=== PATIENT | female | born 1985 | race Caucasian/White ===

== ENCOUNTER 2019-03-11 17:44 | Emergency (ER) | payer SELFPAY ==
[~2019-03-11] VITALS: Ht 160 cm; Wt 100.2 kg
[2019-03-11 17:52] VITALS: BP 142/68
--- NOTE | 2019-03-11 17:56 | NUR ---
PT TO BED 11 WITH STEADY GAIT
--- NOTE | 2019-03-11 17:59 | NUR ---
34 Y/O F C/C H/A SINCE MONDAY. PER PT H/A EXACERBATES EVERY TIME SHE HAS BM. PER PT TAKEN IBUPROFEN WITH NO RELIEF; LAST TAKEN YESTERDAY. PT ALLERGIES PNC, CIPRO, BENADRYL. NO HX. NO RX. NO N/D/V. SIDE RAIL X1. PUPILS PERRLA. FAMILY AT BEDSIDE.
--- NOTE | 2019-03-11 19:02 | NUR ---
Patient discharged with v/s stable. Written and verbal after care instructions given and explained. Patient alert, oriented and verbalized understanding of instructions. Ambulatory with steady gait. All questions addressed prior to discharge. ID band removed. Patient advised to follow up with PMD. Rx of IBUPROFEN AND SUMATRIPTAN given. Patient educated on indication of medication including possible reaction and side effects. Opportunity to ask questions provided and answered.
[2019-03-11 19:03] VITALS: BP 142/68
== END 2019-03-11 19:02 | disposition home or self-care (01) ==
LOC: MED 17:44
DX: R51 Headache (principal); Z88.0 Allergy status to penicillin; Z88.1 Allergy status to other antibiotic agents; Z88.8 Allergy status to other drugs, medicaments and biological substances
CPT/HCPCS: 99283

== ENCOUNTER 2019-09-08 16:20 | Emergency (ER) | payer BC, SELFPAY ==
[~2019-09-08] VITALS: Ht 157.5 cm; Wt 104.3 kg
--- NOTE | 2019-09-08 16:40 | NUR ---
PT AMBULATED TO ER BED 04
[2019-09-08 17:03] VITALS: BP 135/74
--- NOTE | 2019-09-08 17:20 | NUR ---
C/O BILAT FLANK & LOWER BACK PAIN 10/20 RADIATING TO PUBIC REGION. PT STATES SHE WAS SEEN AT URGENT CARE 3 DAYS AGO AND WAS TOLD THAT SHE HAD BLOOD IN URINE AND SENT HOME WITH RX OF MOTRIN. REPORTS PAIN HAS INCREASED AND IS NOT RELIEF WITH MOTRIN. DENIES DYSURIA, FREQUENCY, RETENTION ETC. DENIES NAUSEA/VOMITING/FEVER. BED IN LOW POSITION, SIDE RAIL UP X1
--- NOTE | 2019-09-08 17:25 | NUR ---
ERMD AT BEDSIDE EVALUATING PT
[2019-09-08] MEDS ORDERED: NACL 0.9% 1,000 ML IV SCH (17:29)
[2019-09-08] MEDS ORDERED: KETOROLAC 30 MG/ML VIAL IVP ONE (17:30)
--- NOTE | 2019-09-08 17:46 | NUR ---
PT TAKEN TO CT
[2019-09-08 17:57] LABS: BILIRUBIN,URINE NEGATIVE (NEGATIVE); BLOOD, URINE 3+ (NEGATIVE); COLOR,URINE YELLOW (YELLOW); LEUKOCYTE ESTERASE ,URINE TRACE (NEGATIVE); NITRITE, URINE NEGATIVE (NEGATIVE); PH,URINE 5.5 (5.0-9.0); UGLUCOSE NEGATIVE (NEGATIVE)
[2019-09-08 18:27] LABS: RBC,URINE 20-50 /HPF (0-5)
[2019-09-08 18:29] LABS: APPEARANCE,URINE SLIGHTLY HAZY (CLEAR)
[2019-09-08 18:34] LABS: BASOPHILS % (AUTO) 0.5 % (0.0-2.0); EOSINOPHILS # (AUTO) 0.1 K/uL (0-0.4); EOSINOPHILS % (AUTO) 1.8 % (0.0-4.0); HEMATOCRIT 37.1 % (36-48); HEMOGLOBIN 12.2 g/dL (12.0-16.0); LYMPHOCYTES # (AUTO) 1.3 K/uL (2.5-16.5); LYMPHOCYTES % (AUTO) 17.4 % (20.5-51.1); MEAN CORPUSCULAR HEMOGLOBIN 30 pg (27-31); MEAN CORPUSCULAR HGB CONC 33 g/dL (33-37); MEAN CORPUSCULAR VOLUME 90.8 fL (80-94); MONOCYTES # (AUTO) 0.7 K/uL (0.8-1.0); MONOCYTES % (AUTO) 9.4 % (1.7-9.3); NEUTROPHILS # (AUTO) 5.3 K/uL (1.8-7.7); NEUTROPHILS % (AUTO) 70.9 % (42.2-75.2); PLATELET COUNT (AUTO) 236 K/uL (140-450); RED BLOOD CELL COUNT(AUTO) 4.08 MIL/uL (4.20-5.40); RED CELL DISTRIBUTION WIDTH 13.6 % (11.6-13.7); WHITE BLOOD COUNT (AUTO) 7.5 K/uL (4.8-10.8)
[2019-09-08 18:35] LABS: ALBUMIN 3.4 g/dL (3.4-5.0); ANION GAP 12.3 (8-16); CARBON DIOXIDE 27.3 mmol/L (21-32); CREATININE 0.8 mg/dL (0.6-1.3); POTASSIUM 3.6 mmol/L (3.5-5.1); TOTAL BILIRUBIN 0.2 mg/dL (0.0-1.0)
--- NOTE | 2019-09-08 19:07 | NUR ---
COVID SWAB COLLECTED AND WALKED TO LAB
[2019-09-08 19:33] VITALS: BP 132/76
--- NOTE | 2019-09-08 19:34 | NUR ---
Patient discharged with v/s stable. Written and verbal after care instructions given and explained. Patient alert, oriented and verbalized understanding of instructions. Ambulatory with steady gait. All questions addressed prior to discharge. ID band removed. Patient advised to follow up with PMD. Rx of NORCO, AZITHROMYCIN, BACTRIM AND IBUPROEN given. Patient educated on indication of medication including possible reaction and side effects. Opportunity to ask questions provided and answered.
== END 2019-09-08 19:34 | disposition home or self-care (01) ==
LOC: EEVIPCON 16:20 → MED 16:20
DX: U07.1 COVID-19 (principal); N39.0 Urinary tract infection, site not specified; Z88.0 Allergy status to penicillin; Z88.1 Allergy status to other antibiotic agents; Z88.5 Allergy status to narcotic agent
CPT/HCPCS: 36415; 74176; 80053; 81001; 81025; 83690; 85025; 87086; 96374; 99284; J1885; U0003; J7030

== ENCOUNTER 2019-09-13 07:00 | Inpatient (IN) | payer MEDICAID, SELFPAY ==
[~2019-09-13] VITALS: Ht 157.5 cm; Wt 104.3 kg
[2019-09-13 07:00] VITALS: BP 110/70
--- NOTE | 2019-09-13 07:00 | NUR ---
PT AMBULATED TO ER BED 01
--- NOTE | 2019-09-13 07:10 | NUR ---
C/O SOB X 2 HRS . PT STATES SHE WOKE UP GASPING FOR AIR AND FEELS LIKE SHE CAN'T CATCH HER BREATH. PT COVID + , 09/08/19. +DIARRHEA / COUGH / DIZZINESS , - N/V. PT TOOK TYLENOL AT 5 W/ NO RELIEF. PT DENIES ANY FEVER, CP, OR COUGH AT THIS TIME; PATIENT STATES PAIN OF 0/10 AT THIS TIME; VSS; PATIENT POSITIONED FOR COMFORT; HOB ELEVATED; BEDRAILS UP X1; BED DOWN. ER MD MADE AWARE OF PT STATUS. PT IS IN THE ISO ROOM AND ON MONITOR.
[2019-09-13] MEDS ORDERED: ALBUTEROL HFA MDI 90 MCG/ACTUATION 8 GM INH ONE (07:30)
[2019-09-13] MEDS ORDERED: guaiFENesin DM 200/20 MG-10 ML 10 ML UDC PO ONE (07:30)
[2019-09-13] MEDS ORDERED: DEXAMETHASONE 10 MG/ML VIAL IM ONE (07:30)
--- NOTE | 2019-09-13 07:45 | NUR ---
RT IS AT BEDSIDE.
--- NOTE | 2019-09-13 08:50 | NUR ---
PT IS RESTING IN THE ISO ROOM WITH VSS.
[2019-09-13 09:36] LABS: BASOPHILS # (AUTO) 0.1 K/uL (0.00-0.22); BASOPHILS % (AUTO) 0.7 % (0.0-2.0); HEMATOCRIT 37.8 % (36-48); HEMOGLOBIN 12.4 g/dL (12.0-16.0); LYMPHOCYTES # (AUTO) 1.2 K/uL (2.5-16.5); LYMPHOCYTES % (AUTO) 17.5 % (20.5-51.1); MEAN CORPUSCULAR HEMOGLOBIN 30 pg (27-31); MEAN CORPUSCULAR HGB CONC 33 g/dL (33-37); MEAN CORPUSCULAR VOLUME 90.3 fL (80-94); MONOCYTES # (AUTO) 0.4 K/uL (0.8-1.0); NEUTROPHILS # (AUTO) 5.4 K/uL (1.8-7.7); NEUTROPHILS % (AUTO) 75.8 % (42.2-75.2); PLATELET COUNT (AUTO) 209 K/uL (140-450); RED BLOOD CELL COUNT(AUTO) 4.18 MIL/uL (4.20-5.40); RED CELL DISTRIBUTION WIDTH 13.7 % (11.6-13.7); WHITE BLOOD COUNT (AUTO) 7.1 K/uL (4.8-10.8)
--- NOTE | 2019-09-13 09:36 | NUR ---
PT IS NOT ABLE TO URINATE AT THIS TIME.
[2019-09-13] MEDS ORDERED: AZITHROMYCIN 500 MG in DEXTROSE 5% 250 ML IV ONE (09:40)
[2019-09-13 09:45] LABS: C-REACTIVE PROTEIN QUANT 10.3 mg/dL (0.0-0.9)
[2019-09-13 09:49] LABS: ALBUMIN 3.3 g/dL (3.4-5.0); ANION GAP 15.3 (8-16); CARBON DIOXIDE 24.4 mmol/L (21-32); CREATININE 0.9 mg/dL (0.6-1.3); POTASSIUM 3.7 mmol/L (3.5-5.1); TOTAL BILIRUBIN 0.3 mg/dL (0.0-1.0)
[2019-09-13 09:50] LABS: LACTATE DEHYDROGENASE 219 U/L (81-234); PROTHROMBIN TIME 10.3 secs (10.8-13.4)
[2019-09-13] MEDS ORDERED: cefTRIAXone 1,000 MG VIAL ONE (10:03)
[2019-09-13] MEDS ORDERED: AZITHROMYCIN 500 MG INJ VIAL IV ONE (10:03)
[2019-09-13] MEDS ORDERED: MORPHINE SULFATE 2 MG/ML SYR IVP PRN (10:30)
[2019-09-13] MEDS ORDERED: ONDANSETRON 4 MG/2 ML VIAL IM/IVP PRN (10:30)
[2019-09-13] MEDS ORDERED: ZOLPIDEM 5 MG TAB PO PRN (10:30)
[2019-09-13] MEDS ORDERED: DOCUSATE SODIUM 100 MG GELCAP PO PRN (10:30)
--- NOTE | 2019-09-13 11:00 | NUR ---
URINE SAMPLE OBTAINED AND SENT TO LAB.
--- NOTE | 2019-09-13 11:25 | NUR ---
Pt admitted into room 112B from ED via gurney. Pt able to amb from gurney to bed with steady gait. Pt aaox4, respirations even & nonlabored in O2 @ 2Lpm via n/c. Left AC IV 20G intact with ongoing Zithromax. Pt oriented to room and unit. Call light within reach.
--- NOTE | 2019-09-13 11:25 | NUR ---
Patient will be admitted to care of COVID INFECTION & VIRAL PNA. Admited to TELE . Will go to room 112B. Belongings list completed. Report to BEDYL.
[2019-09-13 11:51] LABS: APPEARANCE,URINE SL CLOUDY (CLEAR); BILIRUBIN,URINE NEGATIVE (NEGATIVE); BLOOD, URINE 3+ (NEGATIVE); COLOR,URINE YELLOW (YELLOW); LEUKOCYTE ESTERASE ,URINE 2+ (NEGATIVE); NITRITE, URINE NEGATIVE (NEGATIVE); PH,URINE 6.5 (5.0-9.0); UGLUCOSE NEGATIVE (NEGATIVE)
[2019-09-13 11:57] LABS: BARBITURATE, URINE NEGATIVE ng/ml (NEG <=200); BENZODIAZEPINE, URINE POSITIVE ng/mL (NEG <=200); CANNABINOID, URINE NEGATIVE ng/mL (NEG <=50); COCAINE, URINE NEGATIVE ng/mL (NEG <=300); OPIATE, URINE POSITIVE ng/mL (NEG <=2000); PHENCYCLIDINE SCREEN,URINE NEGATIVE ng/mL (NEG <=25)
[2019-09-13] MEDS: NACL 0.9% 1,000 ML IV SCH ×2 (12:00→20:28)
--- NOTE | 2019-09-13 12:00 | NUR ---
Pt informed RN that her car is parked by ER parking lot. Informed security Vasu.
[2019-09-13] MEDS: HYDROcodone/APAP 5/325 MG 1 TAB TAB PO PRN (12:07)
[2019-09-13 12:12] LABS: RBC,URINE 50-80 /HPF (0-5); WBC,URINE 20-60 /HPF (0-5)
[2019-09-13 12:42] VITALS: BP 120/58
[2019-09-13] MEDS ORDERED: ALBUTEROL HFA MDI 90 MCG/ACTUATION 8 GM INH PRN (13:35)
[2019-09-13 13:38] LABS: CHOL/HDL RATIO 2.4 (1-4.5); FREE T4 (FREE THYROXINE) 1.22 ng/dL (0.76-1.46); PHOSPHORUS 2.6 mg/dL (2.5-4.9); THYROID STIMULATING HORMONE 1.9 uIU/mL (0.34-3.74)
[2019-09-13] MEDS ORDERED: DEXAMETHASONE 4 MG TAB PO SCH (15:00)
[2019-09-13 16:00] VITALS: BP 102/58
--- NOTE | 2019-09-13 17:00 | NUR ---
Pt's at bowling or skating front desk clerk waiting for pt's car keys. Pt's handed car keys to security to bring to family @ bowling or skating front desk clerk.
--- NOTE | 2019-09-13 19:00 | NUR ---
RECEIVED PATIENT IN STABLE CONDITION FROM AM SHIFT NURSE FOR CONTINUITY OF CARE CARE. TELE PATIENT. RESPIRATIONS EVEN, UNLABORED. CONTINUES ON O2 3L VIA NC, O2SAT 96%. PATIENT ASSISTED TO PRONE POSITION FOR BETTER VENTILATION. SKIN WARM, DRY. IV SITE TO LEFT AC 20G PATENT/INTACT, INFUSING FLUIDS WELL. NO C/O PAIN. NO S/S ACUTE DISTRESS. CALL LIGHT WITHIN REACH. ISOLATION PRECAUTIONS OBSERVED BY ALL STAFF.
[2019-09-13 20:00] VITALS: BP 116/57
[2019-09-13] MEDS: LORazepam 2 MG/ML VIAL IM/IVP PRN (20:06)
[2019-09-13] MEDS: ENOXAPARIN 100 MG/ML SYR SUBQ SCH (20:33)
[2019-09-13] MEDS ORDERED: LOVENOX 1MG/KG Q12H SUBQ SCH (21:00)
--- NOTE | 2019-09-13 21:00 | NUR ---
PATIENT CONTINUES IN STABLE CONDITION. NO C/O PAIN. NO S/S ACUTE DISTRESS. CALL LIGHT WITHIN REACH. ISOLATION PRECAUTIONS OBSERVED BY ALL STAFF.
--- NOTE | 2019-09-13 23:00 | NUR ---
MADE ROUNDS. PATIENT IS ASLEEP. NO S/S ACUTE DISTRESS. CALL LIGHT WITHIN REACH. ISOLATION PRECAUTIONS IN PLACE.
[2019-09-14] VITALS: BP 106/59
--- NOTE | 2019-09-14 01:00 | NUR ---
PATIENT IS ASLEEP. NO S/S ACUTE DISTRESS. CALL LIGHT WITHIN REACH. ISOLATION PRECAUTIONS IN PLACE.
--- NOTE | 2019-09-14 03:00 | NUR ---
ASSISTED PATIENT TO BEDSIDE COMMODE. NO C/O PAIN. NO S/S ACUTE DISTRESS. CALL LIGHT WITHIN REACH. ISOLATION PRECAUTIONS IN PLACE.
[2019-09-14 04:00] VITALS: BP 112/75
--- NOTE | 2019-09-14 05:35 | NUR ---
PATIENT AWAKE AND IN STABLE CONDITION. NO C/O PAIN. NO S/S ACUTE DISTRESS. CALL LIGHT WITHIN REACH. ISOLATION PRECAUTIONS OBSERVED BY ALL STAFF.
[2019-09-14] MEDS: NACL 0.9% 1,000 ML IV SCH ×2 (05:50→13:40)
--- NOTE | 2019-09-14 07:15 | NUR ---
RECEIVED PATIENT IN STABLE CONDITION FROM PM SHIFT NURSE FOR CONTINUITY OF CARE CARE. ST ON TELE MONITOR. RESPIRATIONS EVEN, UNLABORED. CONTINUES ON O2 4L VIA NC, O2SAT 95%. PATIENT CURRENTLY IN PRONE POSITION FOR BETTER VENTILATION. SKIN WARM, DRY. IV SITE TO LEFT AC 20G PATENT/INTACT, INFUSING FLUIDS WELL. NO C/O PAIN. NO S/S ACUTE DISTRESS. PT HAS BSC. CALL LIGHT WITHIN REACH. ISOLATION AND DROPLET PRECAUTIONS OBSERVED BY ALL STAFF D/T COVID+ STATUS.
--- NOTE | 2019-09-14 07:20 | NUR ---
PATIENT HAS BEEN SCREENED AND CATEGORIZED HIGH NUTRITION RISK. PATIENT WILL BE SEEN WITHIN 1-2 DAYS OF ADMISSION. 09/15/19-09/16/19 DEB CERRATO MS, RDN
[2019-09-14 08:00] VITALS: BP 110/56
[2019-09-14] MEDS: VITAMIN D 400 IU TAB PO SCH (08:03)
[2019-09-14] MEDS: ENOXAPARIN 100 MG/ML SYR SUBQ SCH ×2 (08:03→20:18)
[2019-09-14] MEDS: ZINC SULF 220 MG CAP PO SCH (08:03)
[2019-09-14] MEDS: ASCORBIC ACID 500 MG TAB PO SCH (08:03)
[2019-09-14] MEDS: DEXAMETHASONE 4 MG TAB PO SCH (08:03)
--- NOTE | 2019-09-14 08:05 | NUR ---
ORDERED MEDICATIONS GIVEN. PATIENT TOLERATED THEM WELL. PATIENT HAS NO COMPLAINTS AT THIS TIME. WILL CONTINUE TO MONITOR PATIENT.
[2019-09-14] MEDS: ACETAMINOPHEN 325 MG TAB PO PRN (08:22)
--- NOTE | 2019-09-14 08:50 | NUR ---
PATIENT'S SISTER GLORIA ALONZO CALLED. UPDATED HER ON PATIENT'S STATUS. GAVE HER PHONE NUMBER [phone] PAIGE. HE STATED HE WILL CALL HER AND ANSWER ANY QUESTIONS SHE MIGHT HAVE WHEN HE IS AVAILABLE. WILL CONTINUE TO MONITOR PATIENT.
[2019-09-14] MEDS: LORazepam 2 MG/ML VIAL IM/IVP PRN ×2 (11:22→22:07)
--- NOTE | 2019-09-14 11:22 | NUR ---
PRN ATIVAN GIVEN FOR PT'S C/O ANXIOUSNESS AND AGITATION. PATIENT STATED "I THINK IF I GO TO SLEEP, I WON'T WAKE UP". ATTEMPTED TO ALLEVIATED PATIENT'S FEAR. PATIENT NOW REPOSITIONED IN BED. SISTER GLORIA CALLED TO ENCOURAGE HER TO RELAX. PATIENT HAS NO OTHER COMPLAINTS AT THIS TIME. CALL LIGHT WITHIN REACH, WILL CONTINUE TO MONITOR PATIENT.
[2019-09-14 11:30] VITALS: BP 112/60
--- NOTE | 2019-09-14 15:15 | NUR ---
PATIENT RESTING IN PRONE POSITION. NO COMPLAINTS AT THIS TIME. INTRODUCED PATIENT AND EDUCATED PATIENT ABOUT INCENTIVE SPIROMETER USE. PATIENT VERBALIZED UNDERSTANDING AND STATED ATTEMPT TO TRY. VS WNL, ORAL TEMP RETAKEN, TEMP 99.3 NOW, NO LONGER 100.5. WILL CONTINUE TO MONITOR PATIENT.
[2019-09-14 15:30] VITALS: BP 114/85
--- NOTE | 2019-09-14 17:00 | NUR ---
PT C/O COUGH, NO PRN COUGH MEDICATION AVAILABLE AT THIS TIME. INFORMED DR. PAIGE, NEW PRN ORDER IN. CALLED [facility]. THEY STATED THEY WILL VERIFY. WILL GIVE MED ONCE VERIFIED.
[2019-09-14] MEDS ORDERED: BENZONATATE 100 MG CAPLF PO PRN (17:05)
[2019-09-14] MEDS: guaiFENesin DM 200/20 MG-10 ML 10 ML UDC PO PRN (17:19)
[2019-09-14] MEDS: HYDROcodone/APAP 5/325 MG 1 TAB TAB PO PRN (17:19)
--- NOTE | 2019-09-14 17:19 | NUR ---
PRN PAIN MEDICATION GIVEN FOR C/O BACK PAIN, PRN COUGH MEDICATION GIVEN. PATIENT TOLERATED THEM WELL. EDUCATED PATIENTS ABOUT INDICATIONS. PT VERBALIZED UNDERSTANDING. DROPLET PRECAUTIONS IN PLACE, CALL LIGHT WITHIN REACH, WILL CONTINUE TO MONITOR PATIENT.
--- NOTE | 2019-09-14 20:20 | NUR ---
RECEIVED PT ALERT, AWAKE ORIENTED, IN PRONE POSITION, INCENTIVE SPIROMETER AT BEDSIDE, SKIN WARM TO TOUCH RESP. EVEN AND UNLABORED, IVF ONGOING WELL TOLERATED NS AT 60ML/HR, PER PATIENT SHE WANTED SLEEPING PILL AT AROUND 10PM, O2 AT 4L/, O2 SAT 92.
[2019-09-14 20:25] VITALS: BP 133/65
--- NOTE | 2019-09-14 21:58 | NUR ---
PATIENT WITH ANXIETY REQUESTING ATIVAN, ENCOURAGED PT TO VERBALIZED FEELINGS, PATIENT WITH ANXIETY, WILL MEDICATE ORDER
--- NOTE | 2019-09-14 23:31 | NUR ---
PATIENT SLEEPING IN PRONE POSITION, ENCOURAGED PT TO MOVE AND PT FOLLOW, WILL CHECK PT AGAIN LATER.
[2019-09-15] MEDS: guaiFENesin DM 200/20 MG-10 ML 10 ML UDC PO PRN ×3 (01:17→21:04)
--- NOTE | 2019-09-15 01:19 | NUR ---
ASSISTED PT IN THE BATHROOM, COMPLAINING OF COUGH , ON O2 AT 4L,
[2019-09-15] MEDS: HYDROcodone/APAP 5/325 MG 1 TAB TAB PO PRN ×3 (03:12→21:04)
--- NOTE | 2019-09-15 03:17 | NUR ---
PATIENT AWAKE, VITAL SIGN OBTAINED,NORCO GIVEN FOR PAIN
[2019-09-15 03:22] VITALS: BP 103/55
--- NOTE | 2019-09-15 05:40 | NUR ---
PATIENT AWAKE, NO SOB NOTED, O2 SAT 94 PERCENT, ON 4L, NO DISTRESS NOTED.
[2019-09-15 07:15] LABS: BASOPHILS % (AUTO) 0.2 % (0.0-2.0); HEMOGLOBIN 11.8 g/dL (12.0-16.0); LYMPHOCYTES # (AUTO) 2.3 K/uL (2.5-16.5); LYMPHOCYTES % (AUTO) 18.8 % (20.5-51.1); MEAN CORPUSCULAR HEMOGLOBIN 29 pg (27-31); MEAN CORPUSCULAR HGB CONC 33 g/dL (33-37); MEAN CORPUSCULAR VOLUME 90.1 fL (80-94); MONOCYTES # (AUTO) 0.7 K/uL (0.8-1.0); MONOCYTES % (AUTO) 5.6 % (1.7-9.3); NEUTROPHILS # (AUTO) 9.4 K/uL (1.8-7.7); NEUTROPHILS % (AUTO) 75.4 % (42.2-75.2); PLATELET COUNT (AUTO) 264 K/uL (140-450); RED CELL DISTRIBUTION WIDTH 13.4 % (11.6-13.7); WHITE BLOOD COUNT (AUTO) 12.4 K/uL (4.8-10.8)
--- NOTE | 2019-09-15 07:17 | NUR ---
COUGH MEDICINE GIVEN, PATIENT FEELING BETTER, SMILING, WITH SLIGHT ON AND OFF DRY COUGH, WILL ENDORSED TO INCOMING SHIFT
--- NOTE | 2019-09-15 07:18 | NUR ---
RECEIVED PATIENT FROM PM SHIFT NURSE FOR CONTINUITY OF CARE. SR/ST ON TELE MONITOR. RESPIRATIONS EVEN, UNLABORED. CONTINUES ON O2 5L VIA NC, O2SAT 92%. SKIN WARM, DRY. IV SITE TO LEFT AC 20G PATENT/INTACT, INFUSING FLUIDS WELL. NO C/O PAIN. NO S/S ACUTE DISTRESS. PT HAS BSC. CALL LIGHT WITHIN REACH. ISOLATION AND DROPLET PRECAUTIONS OBSERVED BY ALL STAFF D/T COVID+ STATUS. WILL CONTINUE TO MONITOR PATIENT.
[2019-09-15 07:29] LABS: ANION GAP 12.6 (8-16); CARBON DIOXIDE 26.4 mmol/L (21-32); CREATININE 0.8 mg/dL (0.6-1.3)
--- NOTE | 2019-09-15 07:45 | NUR ---
PATIENT CALLED WITH COMPLAINT OF SOB, OXYGEN INCREASED TO 6L VIA NC. PATIENT ENCOURAGE TO DEEP BREATHE. PATIENT O2 SATURATION NOW AT 89% ON 6L O2 VIA NC. WILL CONTINUE TO MONITOR PATIENT.
[2019-09-15 08:00] VITALS: BP 107/60
[2019-09-15] MEDS: VITAMIN D 400 IU TAB PO SCH (08:01)
[2019-09-15] MEDS: ASCORBIC ACID 500 MG TAB PO SCH (08:01)
[2019-09-15] MEDS: DEXAMETHASONE 4 MG TAB PO SCH (08:01)
[2019-09-15] MEDS: ZINC SULF 220 MG CAP PO SCH (08:01)
--- NOTE | 2019-09-15 08:01 | NUR ---
ORDERED MEDICATIONS GIVEN. PATIENT TOLERATED THEM WELL. PATIENT HAS NO COMPLAINTS AT THIS TIME. WILL CONTINUE TO MONITOR PATIENT.
[2019-09-15] MEDS: ENOXAPARIN 100 MG/ML SYR SUBQ SCH (08:02)
[2019-09-15] MEDS ORDERED: AZITHROMYCIN 250 MG TAB PO SCH (09:00)
[2019-09-15 12:00] VITALS: BP 110/62
--- NOTE | 2019-09-15 12:50 | NUR ---
Patient sitting on side of bed in chair finished eating lunch. Now currently back in bed, resting in prone position, O2 saturation 91% at 5L O2 via NC. Will continue to monitor patient.
[2019-09-15] MEDS: NACL 0.9% 1,000 ML IV SCH (15:12)
--- NOTE | 2019-09-15 15:30 | NUR ---
INFORMED PATIENT ABOUT O2 QUALIFIER FOR HOME O2. PATIENT AGREEABLE TO PLAN BUT AFTER ATIVAN DOSE. WILL CONTINUE TO MONITOR PATIENT.
--- NOTE | 2019-09-15 15:39 | NUR ---
DISCHARGE PLANNING: LATE ENTRY FOR 1300: RECEIVED AN ORDER FOR HOME O2. CONTACTED DEISI RUFFIN AT [phone], ABLE TO SPEAK TO NORAH. HE STATED TO FAX THE ORDER TO [phone] WITH THE O2 QUALIFIER. CHARGE NURSE REMINDED TO PERFORM O2 QUALIFIER. ORDER SENT TO THE PROVIDED PHONE NUMBER. Addendum: 09/16/19 at 1528 by Elissa Chris CM FOLLOWED UP WITH AMY AT [facility]. THE HOME 02 IS BEING DISPATCHED ETA 5:30. WILL NOTIFY ARABELLA
[2019-09-15] MEDS: LORazepam 2 MG/ML VIAL IM/IVP PRN (15:44)
--- NOTE | 2019-09-15 15:44 | NUR ---
PT REQUESTED FOR ATIVAN PRN D/T AGITATION AND ANXIOUSNESS. PRN MEDICATION GIVEN. PATIENT TOLERATED IT. NOW RESTING IN BED COMFORTABLY. WILL CONTINUE TO MONITOR PATIENT.
[2019-09-15 16:00] VITALS: BP 99/63
--- NOTE | 2019-09-15 17:45 | NUR ---
PATIENT CURRENTLY RESTING COMFORTABLY IN BED AFTER EATING DINNER. ASKED ABOUT O2 QUALIFIER, SHE STATED LATER. WILL ENDORSE TO TAG MARKER NURSE ABOUT O2 QUALIFIER.
--- NOTE | 2019-09-15 18:50 | NUR ---
PATIENT AMBULATED TO BSC. CALL TO C/O ABOUT SOB, PATIENT CURRENTLY BACK IN BED, O2 SATURATION 84% ON 4L O2 VIA NC, INCREASED O2 TO 6L, PATIENT SATURATION AT 86%, INCREASED O2 TO 8L, PATIENT O2 SATURATION AT 88%. INFORMED PATIENT IF NEED TO USE BSC, CALL FOR STANDBY ASSISTANCE. PATIENT VERBALIZED UNDERSTANDING. CALL LIGHT WITHIN REACH, WILL CONTINUE TO MONITOR PATIENT.
--- NOTE | 2019-09-15 19:15 | NUR ---
REPORT GIVEN TO METAL OR WOOD BLOCKER NURSE.
--- NOTE | 2019-09-15 19:39 | NUR ---
PATIENT TALKING TO FAMILY IN THE PHONE, ALERT, AWAKE ORIENTED, NO SOB NOTED, O2 SAT 90 WITH O2 AT 4L/MIN, WITH DRY COUGH, CPT DONE, PT TOLERATED.
[2019-09-15 20:00] VITALS: BP 100/59
--- NOTE | 2019-09-15 20:32 | NUR ---
PATIENT USING COMMODE AT THIS, DIRECTOR MEDIA ASSISTING PATIENT
--- NOTE | 2019-09-15 21:05 | NUR ---
PATIENT BACK TO BED ON O2 AT 4L/MIN, RIGHT SIDE, CALM, CALL LIGHT WITHIN EASY REACH
--- NOTE | 2019-09-15 21:17 | NUR ---
PT RESTING COMFORTABLY ON 5LNC NO DISTRESS NOTED
[2019-09-16 00:38] VITALS: BP 106/67
--- NOTE | 2019-09-16 00:59 | NUR ---
PT AWAKE REQUESTING HER NOSE TO BE CLEAN, WILL GIVE PT Q TIPS TO CLEAN HER NOSE, O2 SAT 93
[2019-09-16] MEDS: NACL 0.9% 1,000 ML IV SCH (01:05)
[2019-09-16 05:07] VITALS: BP 122/60
--- NOTE | 2019-09-16 05:09 | NUR ---
PATIENT SLEEPING IN PRONE POSITION WITH GOOD O2 SAT, VITAL SIGN OBTAINED, WITH TEMP OF 100.6, WILL GIVE TYLENOL
--- NOTE | 2019-09-16 05:35 | NUR ---
PATIENT ASSISTED TO BATHROOM O2 SAT WENT DOWN 80, WITH DRY COUGH, PATIENT CLAM, PUT BACK TO BED O2 SAT WENT UP TO 91, ENCOURAGED TO DO DEEP BREATHING , PATIENT COOPERATIVE
[2019-09-16] MEDS: ACETAMINOPHEN 325 MG TAB PO PRN (05:37)
--- NOTE | 2019-09-16 07:25 | NUR ---
RECEIVED BEDSIDE REPORT FROM SEWING INSPECTOR RN, GINETTE, FOR CONTINUITY OF CARE. SR ON TELE MONITOR. AAOX4, ABLE TO AMBULATE WITH ASSIST. RESPIRATIONS EVEN, UNLABORED. CONTINUES ON O2 4L VIA NC, O2SAT 92%. SKIN WARM, DRY. IV SITE TO LEFT AC 20G PATENT/INTACT, INFUSING FLUIDS WELL. NO C/O PAIN. NO S/S ACUTE DISTRESS. CALL LIGHT WITHIN REACH. ISOLATION AND DROPLET PRECAUTIONS OBSERVED BY ALL STAFF D/T COVID+ STATUS. POC DISCUSSED AND PATIENT VERBALIZES UNDERSTANDING. WILL CONTINUE TO MONITOR PATIENT.
[2019-09-16 08:00] VITALS: BP 98/58
[2019-09-16 08:06] LABS: HEMATOCRIT 35.1 % (36-48); HEMOGLOBIN 11.5 g/dL (12.0-16.0); LYMPHOCYTES # (AUTO) 1.9 K/uL (2.5-16.5); LYMPHOCYTES % (AUTO) 14.5 % (20.5-51.1); MEAN CORPUSCULAR HEMOGLOBIN 30 pg (27-31); MEAN CORPUSCULAR HGB CONC 33 g/dL (33-37); MEAN CORPUSCULAR VOLUME 90.1 fL (80-94); MONOCYTES # (AUTO) 1.1 K/uL (0.8-1.0); MONOCYTES % (AUTO) 8.6 % (1.7-9.3); NEUTROPHILS # (AUTO) 10.3 K/uL (1.8-7.7); NEUTROPHILS % (AUTO) 76.9 % (42.2-75.2); PLATELET COUNT (AUTO) 268 K/uL (140-450); RED CELL DISTRIBUTION WIDTH 13.8 % (11.6-13.7); WHITE BLOOD COUNT (AUTO) 13.4 K/uL (4.8-10.8)
[2019-09-16] MEDS ORDERED: ENOXAPARIN 40 MG/0.4 ML SYR SUBQ SCH (09:00)
[2019-09-16 09:04] LABS: ANION GAP 12.1 (8-16); CARBON DIOXIDE 28.7 mmol/L (21-32); CREATININE 0.8 mg/dL (0.6-1.3); POTASSIUM 3.8 mmol/L (3.5-5.1)
[2019-09-16] MEDS: VITAMIN D 400 IU TAB PO SCH (09:05)
[2019-09-16] MEDS: DEXAMETHASONE 4 MG TAB PO SCH (09:05)
--- NOTE | 2019-09-16 09:05 | NUR ---
MORNING MEDICATIONS GIVEN. NO SIGNS OF DISTRESS NOTED. V/S IS WNL. WILL CONTINUE TO MONITOR.
[2019-09-16] MEDS: ASCORBIC ACID 500 MG TAB PO SCH (09:06)
[2019-09-16] MEDS: ZINC SULF 220 MG CAP PO SCH (09:06)
[2019-09-16] MEDS: LORazepam 2 MG/ML VIAL IM/IVP PRN (09:58)
--- NOTE | 2019-09-16 09:58 | NUR ---
ATIVAN GIVEN FOR ANXIETY. NO SIGNS OF DISTRESS NOTED. WILL CONTINUE TO MONITOR.
--- NOTE | 2019-09-16 10:35 | NUR ---
AUDIOVISUAL PRODUCTION SPECIALIST NOTE: Patient's Orientation Person Situation Place Time Information Provided By SUSAN ROY Comments SW WAS UNABLE TO MEET PATIENT DUE TO MEDICAL CONDITION. Repair Service Clerk, Realtionship and Phone Number SUSAN MANUELA SIGNIFICANT OTHER [phone] [facility] Power of Director Of Business Applications No Does Patient Have a POLST No Identifying Problems No Social Work Triggers Is A Social Work Consult Needed No Mandate Report Filed No Explanation Of Identifying Problems PATIENT IS A 34-YEAR-OLD FEMALE ADMITTED FOR VIRAL PNEUMONIA. PATIENT HAS PMHX OF COVID POSITIVE. Admitted From Home Pre-Admission Level Of Functioning Status Independent/Ambulatory Prior Resources/Services Used In Last 12 Months No Prior Resources Used Prior DME No Prior DME Used Living Situation Apartment Lives With Family Patient Had Caregiver No Home Support No Caregiver Issues CG/Fam Able To Meet Need Financial Issues No Known Financial Issue Referral To The Financial Counselor Needed No Factors/Needs No D/C Needs Identified Pt/Rep Participated In Discharge Plan No Discharge Plan Comments TENTATIVE DISCHARGE PLAN IS FOR PATIENT TO RETURN HOME. DC Plan Status Initiated
--- NOTE | 2019-09-16 11:45 | NUR ---
PATIENT STATES THAT SHE CAN ONLY BE PICKED UP AFTER 1700. MD IS AWARE. WILL FOLLOW THROUGH.
[2019-09-16] MEDS ORDERED: VITC500 PO ×2 (11:49→21:24)
[2019-09-16] MEDS ORDERED: DEC4 PO ×2 (11:49→21:24)
[2019-09-16] MEDS ORDERED: VITD400 PO ×2 (11:49→21:24)
[2019-09-16] MEDS ORDERED: ASPI81CT51 PO (11:49)
[2019-09-16] MEDS ORDERED: ZINC220C28 PO ×2 (11:49→21:24)
[2019-09-16 12:00] VITALS: BP 109/59
[2019-09-16] MEDS ORDERED: APIX2.5 PO ×2 (12:26→21:24)
--- NOTE | 2019-09-16 14:10 | NUR ---
RECEIVED CALL FROM CASE MANAGEMENT, SUPPLEMENTAL O2 WILL BE GIVEN TO PATIENT AT 1730. WILL REPORT TO PATIENT. WILL CONTINUE TO MONITOR.
[2019-09-16 16:00] VITALS: BP 109/58
[2019-09-16] MEDS ORDERED: GUAI-646 PO ×2 (16:18→21:24)
[2019-09-16] MEDS ORDERED: BENZ-196 PO ×2 (16:18→21:24)
[2019-09-16] MEDS ORDERED: BUS5 PO ×2 (16:19→21:24)
--- NOTE | 2019-09-16 16:40 | NUR ---
DR. WHITT BY THE BEDSIDE. DISCHARGE TEACHINGS AND INSTRUCTIONS GIVEN. PATIENT VERBALIZES UNDERSTANDING. WILL CONTINUE TO MONITOR.
[2019-09-16 17:22] VITALS: BP 109/58
--- NOTE | 2019-09-16 18:25 | NUR ---
PATIENT DISCHARGED TO HOME WITH SPOUSE. NO SIGNS OF DISTRESS NOTED. PATIENT TEACHINGS AND HANDOUTS GIVEN. PATIENT VERBALIZES UNDERSTANDING. IV SITES AND ARMBANDS REMOVED. COVID-19 HANDOUTS AND INFORMATION (10 WAYS TO MANAGE RESPIRATORY SYMPTOMS, NUTRITION, HOME ISOLATION).
[2019-09-16] MEDS ORDERED: BENZ100C6 PO (21:24)
[2019-09-19] MEDS ORDERED: LORazepam 2 MG/ML VIAL IM/IVP PRN (11:05)
== END 2019-09-16 18:25 | disposition home or self-care (01) | DRG 137 ==
LOC: MED 07:00 → EEVIPCON 07:00 → MTU 10:35
PROVIDERS: ADMIT General Practice; ATTEND General Practice
DX: U07.1 COVID-19 (principal); J96.01 Acute respiratory failure with hypoxia; R65.10 Systemic inflammatory response syndrome (SIRS) of non-infectious origin without acute organ dysfunction; E66.01 Morbid (severe) obesity due to excess calories; E44.1 Mild protein-calorie malnutrition; J12.89 Other viral pneumonia; Z68.41 Body mass index [BMI] 40.0-44.9, adult; N39.0 Urinary tract infection, site not specified; Z88.0 Allergy status to penicillin; R31.9 Hematuria, unspecified
CPT/HCPCS: 36415; 71045; 80048; 80053; 80305; 81001; 81025; 82150; 82550; 82728; 83036; 83605; 83615; 83690; 83735; 83880; 84100; 84439; 84443; 84484; 85025; 85379; 85384; 85610; 85651; 85730; 86140; 87040; 87081; 87086; 93005; 96365; 96375; 99291; J0456; J0696; J1650; J2060; J7030; J7060; U0003-CS

== ENCOUNTER 2019-09-19 03:38 | Inpatient (IN) | payer MEDICAID, SELFPAY ==
[~2019-09-19] VITALS: Ht 157.5 cm; Wt 95.7 kg
[~2019-09-19 03:38] MED LIST: APIX2.5 PO; BENZ-196 PO; BENZ100C6 PO; BUS5 PO; DEC4 PO; GUAI-646 PO; VITC500 PO; VITD400 PO; ZINC220C28 PO
--- NOTE | 2019-09-19 03:38 | NUR ---
PT [facility] BLS. TAKEN TO BED 10
--- NOTE | 2019-09-19 03:45 | NUR ---
34 YO F BIBA FOR C/C OF 9/10 RIGHT CHEST PAIN AND SOB X1 DAY. PT IS COVID POSITIVE AND WAS DISCHARGED FROM [facility] X3 DAYS AGO. PT WAS DISCHARGED ON 6L OF O2 VIA NASAL CANNULA. PT DENIES FEVER, N/V/D. PT PLACED ON HEALTH BENEFITS SPECIALIST AND 4L NC. VSS. BED LOCKED AND IN LOWEST POSITION. ALLERGIES: PENICILLIN, CIPROFLOXACIN, BENADRYL MED HX: COVID POSITIVE RX: SEE MED REC
[2019-09-19 03:50] VITALS: BP 102/50
--- NOTE | 2019-09-19 04:20 | NUR ---
Dr. Maldonado examining patient.
--- NOTE | 2019-09-19 04:21 | NUR ---
X-Ray at bedside.
[2019-09-19] MEDS ORDERED: KETOROLAC 30 MG/ML VIAL IVP ONE (04:40)
[2019-09-19 05:48] LABS: BASOPHILS % (AUTO) 0.3 % (0.0-2.0); EOSINOPHILS % (AUTO) 0.3 % (0.0-4.0); HEMATOCRIT 38.3 % (36-48); HEMOGLOBIN 12.5 g/dL (12.0-16.0); LYMPHOCYTES # (AUTO) 3.8 K/uL (2.5-16.5); LYMPHOCYTES % (AUTO) 25.8 % (20.5-51.1); MEAN CORPUSCULAR HEMOGLOBIN 29 pg (27-31); MEAN CORPUSCULAR HGB CONC 33 g/dL (33-37); MEAN CORPUSCULAR VOLUME 89.6 fL (80-94); MONOCYTES # (AUTO) 1.7 K/uL (0.8-1.0); MONOCYTES % (AUTO) 11.9 % (1.7-9.3); NEUTROPHILS % (AUTO) 61.7 % (42.2-75.2); PLATELET COUNT (AUTO) 485 K/uL (140-450); RED BLOOD CELL COUNT(AUTO) 4.28 MIL/uL (4.20-5.40); WHITE BLOOD COUNT (AUTO) 14.5 K/uL (4.8-10.8)
[2019-09-19 05:55] LABS: C-REACTIVE PROTEIN QUANT 2.6 mg/dL (0.0-0.9)
[2019-09-19 06:01] LABS: LACTATE DEHYDROGENASE 192 U/L (81-234)
[2019-09-19 06:02] LABS: ANION GAP 15.2 (8-16); CARBON DIOXIDE 29.4 mmol/L (21-32); CREATININE 0.8 mg/dL (0.6-1.3); POTASSIUM 4.6 mmol/L (3.5-5.1); PROTHROMBIN TIME 10.5 secs (10.8-13.4); TOTAL BILIRUBIN 0.3 mg/dL (0.0-1.0)
[2019-09-19] MEDS ORDERED: ACETAMINOPHEN 325 MG TAB PO PRN (06:20)
[2019-09-19] MEDS ORDERED: ONDANSETRON 4 MG/2 ML VIAL IVP PRN (06:20)
[2019-09-19] MEDS ORDERED: LOVENOX 1MG/KG Q24H SUBQ SCH (06:25)
--- NOTE | 2019-09-19 06:50 | NUR ---
UA COLLECTED AND SENT TO LAB
--- NOTE | 2019-09-19 06:56 | NUR ---
LAB AT BEDSIDE
[2019-09-19 07:25] LABS: APPEARANCE,URINE CLEAR (CLEAR); BILIRUBIN,URINE NEGATIVE (NEGATIVE); BLOOD, URINE 3+ (NEGATIVE); COLOR,URINE YELLOW (YELLOW); LEUKOCYTE ESTERASE ,URINE 1+ (NEGATIVE); NITRITE, URINE NEGATIVE (NEGATIVE); PH,URINE 6.5 (5.0-9.0); UGLUCOSE NEGATIVE (NEGATIVE)
--- NOTE | 2019-09-19 07:26 | NUR ---
REPORT GIVEN TO ARABELLA WALDRON. TRANSFER OF CARE AT THIS TIME.
[2019-09-19 07:35] LABS: BARBITURATE, URINE NEGATIVE ng/ml (NEG <=200); BENZODIAZEPINE, URINE POSITIVE ng/mL (NEG <=200); CANNABINOID, URINE NEGATIVE ng/mL (NEG <=50); COCAINE, URINE NEGATIVE ng/mL (NEG <=300); OPIATE, URINE POSITIVE ng/mL (NEG <=2000); PHENCYCLIDINE SCREEN,URINE NEGATIVE ng/mL (NEG <=25)
[2019-09-19 08:05] LABS: FREE T4 (FREE THYROXINE) 1.4 ng/dL (0.76-1.46); MAGNESIUM 2.2 mg/dL (1.8-2.4); PHOSPHORUS 5.2 mg/dL (2.5-4.9); THYROID STIMULATING HORMONE 3.97 uIU/mL (0.34-3.74)
--- NOTE | 2019-09-19 08:51 | NUR ---
PATIENT HAS BEEN SCREENED AND CATEGORIZED MODERATE NUTRITION RISK. PATIENT WILL BE SEEN WITHIN 3-5 DAYS OF ADMISSION. 09/21/19 09/23/[address]
[2019-09-19] MEDS: DOCUSATE SODIUM 100 MG GELCAP PO SCH ×2 (08:53→21:00)
[2019-09-19] MEDS: CHOLECALCIFEROL 1,000 IU TAB PO SCH (08:54)
[2019-09-19] MEDS: ZINC SULF 220 MG CAP PO SCH (08:54)
[2019-09-19] MEDS: ASCORBIC ACID 500 MG TAB PO SCH (08:54)
[2019-09-19] MEDS: HYDROcodone/APAP 7.5/325 MG 1 TAB PO PRN ×2 (08:55→18:48)
[2019-09-19] MEDS ORDERED: DEXAMETHASONE 4 MG TAB PO SCH (09:00)
[2019-09-19] MEDS: ENOXAPARIN 100 MG/ML SYR SUBQ SCH (09:11)
--- NOTE | 2019-09-19 10:50 | NUR ---
Dr. Verdugo is evaluating the patient at bedside.
--- NOTE | 2019-09-19 11:04 | NUR ---
PT RESTING IN BED, NO NEW NEEDS AT THIS TIME.
[2019-09-19] MEDS ORDERED: ALBUTEROL HFA MDI 90 MCG/ACTUATION 8 GM INH PRN (11:30)
--- NOTE | 2019-09-19 13:38 | NUR ---
CALLED RESIDENTS, SPOKE W/ DR. WHITT AND INFORMED HIM PT IS NOW ON 10LPM MASK, O2 SAT 94% AND INFORMED HIM PT APPEARS CONFUSED AND NEEDED TO BE REORIENTED TO PLACE/TIME. PER DR. WHITT, MONITOR PATIENT AND LET HIM KNOW OF ANY FURTHER CHANGES
[2019-09-19] MEDS ORDERED: remdesivir COMMUNICATION ORDER 1 EA MISC MC PRN (16:25)
[2019-09-19] MEDS ORDERED: CLINICAL MONITORING MC PRN (16:50)
[2019-09-19] MEDS ORDERED: remdesivir 200 mg in NACL 0.9% 100 ML IV SCH (18:00)
--- NOTE | 2019-09-19 18:31 | NUR ---
PT DOES NOT WANT TO START REMDESIVIR OR CONVALESCENT PLASMA UNTIL COMES IN TO EXPLAIN THEM TO HER
--- NOTE | 2019-09-19 19:30 | NUR ---
REPORT RECIEVED FROM ARABELLA WALDRON. TRANSFER OF CARE AT THIS TIME.
--- NOTE | 2019-09-19 19:35 | NUR ---
SPOKE TO CATE IN LAB REGARDING RESULTS OF PTS COVID SWAB. PT IS NOW COIVD NEGATIVE. ADMITTING DOC MADE AWARE. ADMITTING DOCTOR SAID TO DISCONTINUE PLASMA AND REMDESIVIR MEDS. WILL MAKE TELE NURSE AWARE OF PLAN OF CARE.
--- NOTE | 2019-09-19 20:00 | NUR ---
HELPED PT TO BEDSIDE COMMODE. PT STATES HER ARDON IS RELIEVED. BED LCOKED AND IN LOWEST POSITION. EQUAL CHEST RISE AND FALL.
--- NOTE | 2019-09-19 21:45 | NUR ---
Patient will be admitted to care of [facility]. Admited to TELE. Will go to room 131. Belongings list completed. Report to ARABELLA DELONG.
[2019-09-19 21:50] VITALS: BP 110/69
--- NOTE | 2019-09-19 21:50 | NUR ---
RECEIVED PT AAOX4 FROM ER / RNEY - AMBULATES TO BED , W/ O2 AT 3LPM/NC - ON O2 SAT MONITORING , ON TELE MONITOR , SKIN INTACT , DENIES PAIN , ADMISSION ASSESSMENT DONE - MRSA SPECIMEN TO BE SENT TO LAB . PLAN OF CARE DISCUSSED AND VERBALIZE UNDERSTANDING , SAFETY MEASURES INPLACE - CALL LIGHT WITHIN REACH . WILL CONT. TO MONITOR .
[2019-09-19] MEDS: LORazepam 2 MG/ML VIAL IM/IVP PRN (23:32)
--- NOTE | 2019-09-19 23:40 | NUR ---
THE RESIDENT SAID NO NEED FOR BLOOD TRANSFUSSION CONSENT BECAUSE THE PT IS COVID NEGATIVE
--- NOTE | 2019-09-20 02:00 | NUR ---
SLEEPING - O2 SAT WNL .
[2019-09-20 04:00] VITALS: BP 112/60
--- NOTE | 2019-09-20 04:00 | NUR ---
MADE ROUNDS , NO S/SX OF ACUTE DISTRESS NOTED - O2 SAT WNL .
--- NOTE | 2019-09-20 06:00 | NUR ---
MADE ROUNDS , NO S/SX OF ACUTE DISTRESS NOTED - O2 SAT WNL .
[2019-09-20] MEDS: guaiFENesin DM 200/20 MG-10 ML 10 ML UDC PO PRN ×2 (06:13→18:36)
[2019-09-20 06:36] LABS: BASOPHILS % (AUTO) 0.1 % (0.0-2.0); EOSINOPHILS # (AUTO) 0.1 K/uL (0-0.4); EOSINOPHILS % (AUTO) 0.7 % (0.0-4.0); HEMATOCRIT 36.6 % (36-48); HEMOGLOBIN 11.8 g/dL (12.0-16.0); LYMPHOCYTES # (AUTO) 4.8 K/uL (2.5-16.5); MEAN CORPUSCULAR HEMOGLOBIN 29 pg (27-31); MEAN CORPUSCULAR HGB CONC 32 g/dL (33-37); MEAN CORPUSCULAR VOLUME 90.1 fL (80-94); MONOCYTES # (AUTO) 1.5 K/uL (0.8-1.0); MONOCYTES % (AUTO) 9.9 % (1.7-9.3); NEUTROPHILS # (AUTO) 8.3 K/uL (1.8-7.7); NEUTROPHILS % (AUTO) 56.3 % (42.2-75.2); PLATELET COUNT (AUTO) 461 K/uL (140-450); RED BLOOD CELL COUNT(AUTO) 4.06 MIL/uL (4.20-5.40); RED CELL DISTRIBUTION WIDTH 13.3 % (11.6-13.7); WHITE BLOOD COUNT (AUTO) 14.7 K/uL (4.8-10.8)
[2019-09-20 07:15] LABS: CARBON DIOXIDE 29.2 mmol/L (21-32); CREATININE 0.8 mg/dL (0.6-1.3); POTASSIUM 4.2 mmol/L (3.5-5.1)
[2019-09-20 07:22] LABS: CHOL/HDL RATIO 5.7 (1-4.5)
--- NOTE | 2019-09-20 07:23 | NUR ---
ENDORSED TO AM SHIFT - PT - STABLE .
--- NOTE | 2019-09-20 07:24 | NUR ---
RECEIVED REPORT FROM SHOW HOST/HOSTESS NURSE FOR CONTINUITY OF CARE. PATIENT IN STABLE CONDITION. RESPIRATIONS EVEN AND UNLABORED. IV INTACT AND PATENT. SAFETY MEASURES IN PLACE. BED IN LOW POSITION. CALL LIGHT WITHIN REACH. SAFETY MEASURES IN PLACE.
[2019-09-20 08:00] VITALS: BP 114/67
[2019-09-20] MEDS: DEXAMETHASONE 6 MG TAB PO SCH (08:35)
[2019-09-20] MEDS: DOCUSATE SODIUM 100 MG GELCAP PO SCH ×2 (08:35→20:50)
[2019-09-20] MEDS: ASCORBIC ACID 500 MG TAB PO SCH (08:35)
[2019-09-20] MEDS: ZINC SULF 220 MG CAP PO SCH (08:35)
[2019-09-20] MEDS: CHOLECALCIFEROL 1,000 IU TAB PO SCH (08:36)
[2019-09-20] MEDS: LACTOBACILLUS RHAMNOSUS GG 1 EACH CAP PO SCH (08:36)
[2019-09-20] MEDS: ENOXAPARIN 100 MG/ML SYR SUBQ SCH (08:37)
[2019-09-20 08:45] LABS: MAGNESIUM 2.5 mg/dL (1.8-2.4); PHOSPHORUS 4.5 mg/dL (2.5-4.9)
--- NOTE | 2019-09-20 08:59 | NUR ---
GAVE ORDERED DUE MEDICATIONS AT THIS TIME. PATIENT TOLERATED WELL. BED IN LOW POSITION. CALL LIGHT WITHIN REACH. WILL CONTINUE TO MONITOR.
[2019-09-20] MEDS: LORazepam 2 MG/ML VIAL IM/IVP PRN ×2 (09:03→18:36)
--- NOTE | 2019-09-20 09:11 | NUR ---
GAVE PRN ANXIETY MEDICATION PER PATIENT REQUEST. PATIENT TOLERATED WELL. BED IN LOW POSITION. CALL LIGHT WITHIN REACH. WILL CONTINUE TO MONITOR.
--- NOTE | 2019-09-20 11:04 | NUR ---
RECEIVED ORDER FROM DR. RUBIO TO SET UP HOME 02. PATIENT WAS ADMITTED TO THE HOSPITAL LAST WEEK AND AT THAT TIME HOME OXYGEN WAS SET UP AND DELIVERED ON September. FOLLOWED UP WITH AMY AT [facility] TO CONFIRM THAT PATIENT HAS RECEIVED ALL NECESSARY EQUIPMENT.
[2019-09-20 12:00] VITALS: BP 111/64
--- NOTE | 2019-09-20 12:45 | NUR ---
PATIENT EATING LUNCH AT THIS TIME. RESPIRATIONS EVEN AND UNLABORED. BED IN LOW POSITION. CALL LIGHT WITHIN REACH. SAFETY MEASURES IN PLACE.
--- NOTE | 2019-09-20 15:33 | NUR ---
PATIENT SLEEP AT THIS TIME. RESPIRATIONS EVEN AND UNLABORED. BED IN LOW POSITION. CALL LIGHT WITHIN REACH. SAFETY MEASURES IN PLACE.
[2019-09-20 16:00] VITALS: BP 107/69
[2019-09-20] MEDS ORDERED: remdesivir 100 mg in NACL 0.9% 100 ML IV SCH (18:00)
--- NOTE | 2019-09-20 18:30 | NUR ---
DR. KELLY TALKING TO PATIENT AT THIS TIME FOR UPDATE ON CARE. PATIENT IN STABLE CONDITION.
--- NOTE | 2019-09-20 19:29 | NUR ---
GAVE REPORT TO CUSTOM VAN CONVERTER NURSE FOR CONTINUITY OF CARE. PATIENT IN STABLE CONDITION.
--- NOTE | 2019-09-20 19:30 | NUR ---
RECEIVED BEDSIDE REPORT FROM DAY RN. PT IS AAOX4. RESPIRATIONS ARE EQUAL AND UNLABORED ON 4L VIA NC SAT WELL 95%. DX:HYPOXIA PNA, R/O COVID NEGX1. PT WAS POSTIVE X2 WEEKS AGO AND WAS ON HOME O2 2L. SKIN IS INTACT. PT IS AMBULATORY. IV ABX INFUSING PER ORDERS. STANDARD ISOLATION. CALL LIGHT IS WITHIN REACH. WILL CONTINUE TO MONITOR.
[2019-09-20 20:00] VITALS: BP 93/46
--- NOTE | 2019-09-20 20:50 | NUR ---
VSS. ADMINISTERED PILLO MEDICATION. MED EDUCATION GIVEN. ALL NEEDS MET. AT THIS TIME. CALL LIGHT IS WITHIN REACH. WILL CONTINUE TO MONITOR.
--- NOTE | 2019-09-20 22:00 | NUR ---
MADE ROUNDS. PT IS RESTING COMFORTABLY IN BED WATCHING TV. NO S/S OF DISTRESS. CALL LIGHT IS WITHIN REACH. WILL CONTINUE TO MONITOR.
[2019-09-21] VITALS: BP 136/96
--- NOTE | 2019-09-21 | NUR ---
VSS. ALL NEEDS MET. SAFETY MEASURES ARE IN PLACE. CALL LIGHT IS WITHIN REACH.
--- NOTE | 2019-09-21 02:09 | NUR ---
MADE ROUNDS. PT IS SLEEPING COMFORTABLY IN BED WITH EYES CLOSED. CHEST RISE AND FALL NOTED. CALL LIGHT IS WITHIN REACH. WILL CONTINUE TO MONITOR.
[2019-09-21 04:00] VITALS: BP 101/57
--- NOTE | 2019-09-21 04:00 | NUR ---
VITAL SIGNS ARE WITHIN NORMAL LIMITS. ALL SAFETY MEASURES ARE IN PLACE. CALL LIGHT IS WITHIN REACH.
[2019-09-21] MEDS: LORazepam 2 MG/ML VIAL IM/IVP PRN (05:20)
[2019-09-21] MEDS: guaiFENesin DM 200/20 MG-10 ML 10 ML UDC PO PRN (05:20)
--- NOTE | 2019-09-21 05:20 | NUR ---
VSS. ADMINISTERED PRN ATIVAN FOR ANXIETY AND COUGH MEDICINE. PT TOLERATED WELL. ALL NEEDS MET. CALL LIGHT IS WITHIN REACH. WILL CONTINUE TO MONITOR.
[2019-09-21 06:30] LABS: BASOPHILS # (AUTO) 0.1 K/uL (0.00-0.22); BASOPHILS % (AUTO) 0.4 % (0.0-2.0); EOSINOPHILS # (AUTO) 0.1 K/uL (0-0.4); EOSINOPHILS % (AUTO) 0.6 % (0.0-4.0); HEMATOCRIT 37.3 % (36-48); HEMOGLOBIN 11.8 g/dL (12.0-16.0); LYMPHOCYTES # (AUTO) 4.7 K/uL (2.5-16.5); MEAN CORPUSCULAR HEMOGLOBIN 29 pg (27-31); MEAN CORPUSCULAR HGB CONC 32 g/dL (33-37); MONOCYTES # (AUTO) 1.5 K/uL (0.8-1.0); MONOCYTES % (AUTO) 9.8 % (1.7-9.3); NEUTROPHILS # (AUTO) 8.5 K/uL (1.8-7.7); NEUTROPHILS % (AUTO) 57.2 % (42.2-75.2); PLATELET COUNT (AUTO) 483 K/uL (140-450); RED BLOOD CELL COUNT(AUTO) 4.11 MIL/uL (4.20-5.40); RED CELL DISTRIBUTION WIDTH 13.2 % (11.6-13.7); WHITE BLOOD COUNT (AUTO) 14.8 K/uL (4.8-10.8)
[2019-09-21 06:51] LABS: ANION GAP 11.2 (8-16); CARBON DIOXIDE 30.7 mmol/L (21-32); CREATININE 0.8 mg/dL (0.6-1.3); POTASSIUM 3.9 mmol/L (3.5-5.1)
--- NOTE | 2019-09-21 07:16 | NUR ---
GAVE BEDSIDE REPORT TO DAY RN. PT ENDORSED IN STABLE CONDITION.
[2019-09-21 07:54] LABS: MAGNESIUM 2.5 mg/dL (1.8-2.4); PHOSPHORUS 3.4 mg/dL (2.5-4.9)
[2019-09-21 08:00] VITALS: BP 105/60
[2019-09-21] MEDS: CHOLECALCIFEROL 1,000 IU TAB PO SCH (08:14)
[2019-09-21] MEDS: ZINC SULF 220 MG CAP PO SCH (08:14)
[2019-09-21] MEDS: ASCORBIC ACID 500 MG TAB PO SCH (08:14)
[2019-09-21] MEDS: DEXAMETHASONE 6 MG TAB PO SCH (08:14)
[2019-09-21] MEDS: DOCUSATE SODIUM 100 MG GELCAP PO SCH (08:14)
[2019-09-21] MEDS: LACTOBACILLUS RHAMNOSUS GG 1 EACH CAP PO SCH (08:14)
--- NOTE | 2019-09-21 08:15 | NUR ---
Ordered medications given. Patient tolerated them well. Patient verbalized questions about her home medications and antianxiety medication not working, will forward request to Dr. Rodriguez. Also encouraged patient to use IS at home and use Oxygen via NC as needed. Patient now sitting up in bed eating breakfast. Will continue to monitor patient.
[2019-09-21] MEDS: ENOXAPARIN 100 MG/ML SYR SUBQ SCH (08:16)
[2019-09-21] MEDS ORDERED: LORA-476 PO (09:03)
[2019-09-21] MEDS ORDERED: APIX2.5 PO (09:03)
[2019-09-21] MEDS ORDERED: ASCO500T93 PO (09:03)
[2019-09-21] MEDS ORDERED: DEC4 PO (09:03)
[2019-09-21] MEDS ORDERED: ZINC220C28 PO (09:03)
--- NOTE | 2019-09-21 12:55 | NUR ---
PATIENT DISCHARGED HOME WITH . PATIENT TOOK ALL HER BELONGINGS WITH HER. TELE MONITOR REMOVED. PATIENT IN STABLE CONDITION WITH BORROWED OXYGEN TANK.
[2019-09-21 19:16] LABS: ALBUMIN 3.3 g/dL (3.4-5.0); BILIRUBIN,DIRECT 0.1 mg/dL (0.0-0.3); TOTAL BILIRUBIN 0.3 mg/dL (0.0-1.0)
[2019-09-22 09:13] LABS: LACTATE DEHYDROGENASE 165 IU/L (119-226)
== END 2019-09-21 12:55 | disposition home or self-care (01) | DRG 720 ==
LOC: MED 03:38 → MTU 06:21 → EEVIPCON 06:21 → MMU 17:51
PROVIDERS: ADMIT General Practice; ATTEND General Practice
DX: A41.89 Other specified sepsis (principal); U07.1 COVID-19; J96.01 Acute respiratory failure with hypoxia; E44.0 Moderate protein-calorie malnutrition; E66.01 Morbid (severe) obesity due to excess calories; F41.9 Anxiety disorder, unspecified; J12.89 Other viral pneumonia; N39.0 Urinary tract infection, site not specified; E83.39 Other disorders of phosphorus metabolism; E83.41 Hypermagnesemia; E02 Subclinical iodine-deficiency hypothyroidism; Z68.38 Body mass index [BMI] 38.0-38.9, adult; Z71.3 Dietary counseling and surveillance; Z88.1 Allergy status to other antibiotic agents; Z88.0 Allergy status to penicillin; Z88.8 Allergy status to other drugs, medicaments and biological substances; Z79.899 Other long term (current) drug therapy; Z87.891 Personal history of nicotine dependence
CPT/HCPCS: 36415; 71045; 80048; 80053; 80076; 80305; 81001; 81025; 82150; 82550; 82728; 83036; 83605; 83615; 83625; 83690; 83735; 83880; 84100; 84439; 84443; 84484; 85025; 85379; 85384; 85610; 85651; 85730; 86140; 86886; 86900; 86901; 87040; 87081; 87804; 93005; 96365; 96375; 99291; J0696; J1650; J1885; J2060; J3535; J7060; Q0092; U0003-CS

== ENCOUNTER 2019-10-12 08:43 | Emergency (ER) | payer OTHER, SELFPAY ==
[~2019-10-12] VITALS: Ht 157.5 cm; Wt 106.1 kg
[~2019-10-12 08:43] MED LIST changes: +ASCO500T93 PO; -BENZ100C6 PO; +LORA-476 PO
[2019-10-12 08:49] VITALS: BP 112/58
[2019-10-12] MEDS ORDERED: LORazepam 2 MG/ML VIAL IVP STA (08:49)
[2019-10-12 09:18] LABS: BASOPHILS # (AUTO) 0.1 K/uL (0.00-0.22); BASOPHILS % (AUTO) 0.5 % (0.0-2.0); EOSINOPHILS # (AUTO) 0.1 K/uL (0-0.4); HEMATOCRIT 36.1 % (36-48); HEMOGLOBIN 11.8 g/dL (12.0-16.0); LYMPHOCYTES # (AUTO) 4.6 K/uL (2.5-16.5); LYMPHOCYTES % (AUTO) 34.2 % (20.5-51.1); MEAN CORPUSCULAR HEMOGLOBIN 30 pg (27-31); MEAN CORPUSCULAR HGB CONC 33 g/dL (33-37); MEAN CORPUSCULAR VOLUME 91.1 fL (80-94); MONOCYTES % (AUTO) 7.8 % (1.7-9.3); NEUTROPHILS # (AUTO) 7.6 K/uL (1.8-7.7); NEUTROPHILS % (AUTO) 56.5 % (42.2-75.2); PLATELET COUNT (AUTO) 245 K/uL (140-450); RED BLOOD CELL COUNT(AUTO) 3.96 MIL/uL (4.20-5.40); RED CELL DISTRIBUTION WIDTH 15.3 % (11.6-13.7); WHITE BLOOD COUNT (AUTO) 13.5 K/uL (4.8-10.8)
[2019-10-12 09:41] LABS: ALBUMIN 3.6 g/dL (3.4-5.0); ANION GAP 15.5 (8-16); CREATININE 0.7 mg/dL (0.6-1.3); POTASSIUM 3.5 mmol/L (3.5-5.1); TOTAL BILIRUBIN 0.3 mg/dL (0.0-1.0)
[2019-10-12 10:58] VITALS: BP 112/58
== END 2019-10-12 10:57 | disposition home or self-care (01) ==
LOC: MED 08:43
DX: R07.9 Chest pain, unspecified (principal); Z20.828 Contact with and (suspected) exposure to other viral communicable diseases; F41.9 Anxiety disorder, unspecified
CPT/HCPCS: 36415; 71045; 80053; 83880; 84484; 85025; 93005; 96374; 99285; J2060; Q0092

== ENCOUNTER 2019-11-06 13:58 | Emergency (ER) | payer OTHER, SELFPAY ==
[~2019-11-06] VITALS: Ht 149.9 cm; Wt 95.3 kg
[2019-11-06 13:59] VITALS: BP 148/79
[2019-11-06] MEDS ORDERED: MELO15TA11 PO (14:09)
[2019-11-06] MEDS ORDERED: BACL10TA4 PO (14:10)
[2019-11-06] MEDS ORDERED: ATA25 PO (14:10)
[2019-11-06] MEDS ORDERED: ZOLP5TAB1 PO (14:10)
[2019-11-06 14:44] VITALS: BP 143/80
== END 2019-11-06 14:44 | disposition home or self-care (01) ==
LOC: MED 13:58
DX: N39.0 Urinary tract infection, site not specified (principal); M54.5 Low back pain; Z79.899 Other long term (current) drug therapy; Z88.0 Allergy status to penicillin; Z88.1 Allergy status to other antibiotic agents; Z88.8 Allergy status to other drugs, medicaments and biological substances
CPT/HCPCS: 81002; 81025; 99283